=== PATIENT | male | born 1945 | race Caucasian/White ===

== ENCOUNTER → 2016-11-23 | Outpatient (CLI) | payer BC | END | disposition home or self-care (01) | LOC: RAD 16:37 | PROVIDERS: ATTEND Family Medicine | DX: N43.2 Other hydrocele (principal); I86.1 Scrotal varices | CPT/HCPCS: 76870 ==

== ENCOUNTER → 2017-05-05 | Outpatient (CLI) | payer BC | END | disposition home or self-care (01) | LOC: RAD 10:49 | PROVIDERS: ATTEND Family Medicine | DX: M19.012 Primary osteoarthritis, left shoulder (principal) ==

== ENCOUNTER → 2017-11-19 | Outpatient (CLI) | payer BC | LOC: CFH 15:42 | PROVIDERS: ATTEND Family Medicine | DX: Z02.9 Encounter for administrative examinations, unspecified (principal) ==

== ENCOUNTER → 2018-01-21 | Outpatient (CLI) | payer BC | END | disposition home or self-care (01) | LOC: RAD 10:34 | PROVIDERS: ATTEND Family Medicine | DX: M75.52 Bursitis of left shoulder (principal); M19.012 Primary osteoarthritis, left shoulder ==

== ENCOUNTER → 2020-08-14 | Outpatient (CLI) | payer BC | END | disposition home or self-care (01) | LOC: CFH 15:29 | PROVIDERS: ATTEND Psychiatry & Neurology Neurology | DX: G31.89 Other specified degenerative diseases of nervous system (principal); I67.82 Cerebral ischemia; J32.8 Other chronic sinusitis | CPT/HCPCS: 70551 ==